=== PATIENT | female | born 1995 | race Caucasian/White ===

== ENCOUNTER 2016-08-28 08:06 | Day surgery (SDC) | payer OTHER ==
[~2016-08-28 08:06] MED LIST: LEVAQUIN500 M1 PO; NEXPLANON68 M1
== END 2016-08-28 17:20 ==
LOC: SHSB 08:06 → PACU 11:51 → SHSB 13:25
PROC: 0FT44ZZ Resection of Gallbladder, Percutaneous Endoscopic Approach (ICD-10-PCS; principal; 2016-08-28)
PROC: BF13YZZ Fluoroscopy of Gallbladder and Bile Ducts using Other Contrast (ICD-10-PCS; 2016-08-28)
DX: K82.4 Cholesterolosis of gallbladder (principal); E66.01 Morbid (severe) obesity due to excess calories; Z68.43 Body mass index [BMI] 50.0-59.9, adult; Z88.6 Allergy status to analgesic agent; Z79.899 Other long term (current) drug therapy; Z98.890 Other specified postprocedural states
CPT/HCPCS: C1894; J0690; J2405; J2765; J3010; J7030; J7050; Q9966